=== PATIENT | female | born 2000 | race Caucasian/White ===

== ENCOUNTER 2019-05-11 09:11 | Emergency (ER) | payer BC ==
[~2019-05-11] VITALS: Ht 165.1 cm; Wt 61.4 kg
[2019-05-11 09:56] VITALS: Ht 165.1 cm; Wt 61.4 kg
[2019-05-11 10:43] LABS: BASOPHILS 0.2 % (0-2); EOSINOPHILS 0.6 % (0-7); HEMATOCRIT 39.3 % (36.0-48.0); HEMOGLOBIN 14.4 g/dL (12-16); IMMATURE GRANULOCYTES 0.3 % (0-5); LYMPHOCYTES 13.8 % (15-50); MCH 31.7 pg (26.0-34.0); MCHC 36.6 g/dL (31.0-37.0); MCV 86.6 fL (80.0-100.0); MEAN PLATELET VOLUME 10.3 fL (7.4-10.4); MONOCYTES 11.6 % (2-11); NEUTROPHILS 73.5 % (40-80); PLATELET COUNT 156 10x3/uL (130-400); RBC 4.54 10x6/uL (4.00-5.40); RDW 12.6 % (11.5-14.5); WBC 11.5 10x3/uL (4.8-10.8)
[2019-05-11 10:56] LABS: ALBUMIN 4.1 g/dL (3.4-5.0); ANION GAP 13.8 mmol/L (8-16); BILIRUBIN - TOTAL 0.81 mg/dL (0.2-1.3); CALCIUM 8.9 mg/dL (8.5-10.1); CARBON DIOXIDE 26.4 mmol/L (21.0-32.0); CREATININE - SERUM 1.2 mg/dL (0.6-1.3); MAGNESIUM - SERUM 2.2 mg/dL (1.8-2.4); POTASSIUM - SERUM 3.2 mmol/L (3.5-5.1); PROTEIN - SERUM 7.4 g/dL (6.4-8.2)
[2019-05-11 11:06] LABS: UDS - AMPHET POSITIVE QUAL (NEGATIVE); UDS - BARB NEGATIVE QUAL (NEGATIVE); UDS - BENZO POSITIVE QUAL (NEGATIVE); UDS - COCAINE POSITIVE QUAL (NEGATIVE); UDS - OPIATE NEGATIVE QUAL (NEGATIVE); UDS - PCP NEGATIVE QUAL (NEGATIVE); UDS - THC POSITIVE QUAL (NEGATIVE)
[2019-05-11 11:35] LABS: APPEARANCE SL CLDY (CLEAR); BILIRUBIN NEGATIVE (NEGATIVE); COLOR DK YELLOW (YELLOW); GLUCOSE NEGATIVE (NEGATIVE); KETONE MODERATE mg/dL (NEGATIVE); NITRITE NEGATIVE (NEGATIVE); PROTEIN 2+ mg/dL (NEGATIVE); SPECIFIC GRAVITY 1.025 (1.005-1.020)
[2019-05-11 11:37] LABS: WHITE CELLS - URINE OCC /hpf (0-5)
[2019-05-11 11:38] LABS: AMORPHOUS SEDIMENT >1+ /lpf (NONE SEEN); BACTERIA FEW /hpf (NONE SEEN); EPITHELIAL CELLS 0-5 /hpf (0-5); MUCUS <1+ /lpf (NONE SEEN); RED CELLS - URINE OCC /hpf (0-5)
[2019-05-11 11:39] LABS: HYALINE CAST RARE /lpf (NONE SEEN)
[2019-05-11 12:58] VITALS: BP 87/48
--- NOTE | 2019-05-11 13:57 | NUR ---
ALEXX BROUGHT TO EMERGENCY DEPT BY EMERGENCY PERSONNEL EARLIER TODAY. PATIENT WAS REPORTEDLY LETHARGIC AND UNABLE TO ANSWER QUESTIONS AT TIME OF ADMISSION DUE TO SEDATIVES GIVEN PER EMERGENCY PERSONNEL WHILE ENROUTE TO THE HOSPITAL. AT THIS TIME, PATIENT IS RESTING QUIETLY IN BED, EYES CLOSED BUT AROUSES EASILY TO VERBAL STIMULI. THIS NURSE UNABLE TO COMPLETE SUICIDE ASSESSMENT AT THIS TIME DUE TO PATIENT'S REFUSAL TO PARTICIPATE IN THE ASSESSMENT. PATIENT DENIES ANY SUICIDAL THOUGHTS OR ATTEMPTS AT THE PRESENT TIME OR ANY TIME IN HER LIFE. HOWEVER, LAW ENFORCEMENT STATED THAT PATIENT WAS OUTSIDE THE HOUSE IN THE [place] ATTEMPTING TO CUT SELF. FAMILY REPORTS THAT PATIENT LOCKED HERSELF IN THE BATHROOM AND WAS ATTEMPTING TO DROWN SELF IN BATHTUB WHEN FAMILY HAD TO BREAK DOWN THE DOOR TO RESCUE HER. FAMILY ALSO STATED THAT PATIENT VERBALIZED A DESIRE TO SHOOT SELF AND STATED THAT SHE DID HAVE ACCESS TO A FIREARM. PATIENT'S URINE DRUG SCREENS WERE POSITIVE FOR THC, COCAINE, AMPHETAMINES, AND BENZODIAZEPINES. PATIENT ADAMENTLY DENIES ANY THOUGHTS, ATTEMPTS, OR DESIRES TO HARM SELF. PATIENT STATES, "I JUST WANT TO GO HOME TO BE WITH MY BOYFRIEND!" PATIENT REFUSES TO ANSWER ANY QUESTIONS AND SIMPLY STATED HER DESIRE TO GO HOME WITH BOYFRIEND. IT IS THE OPINION OF DR. VIVAR AND THIS NURSE THAT PATIENT IS CLEARLY A RISK FOR SELF-HARM. IT IS FOR THIS REASON THAT DR VIVAR HAS ORDERED A [id number] SITTER TO BE IN PLACE UNTIL PATIENT CAN BE PLACED IN AN INPATIENT FACILITY FOR TREATMENT. SITTER IN PLACE AT BEDSIDE. NOTIFIED CHARGE NURSE AND ATTENDING PHYSICIAN IN REGARDS TO FINDINGS. RESOURCES GIVEN TO PATIENT AND SAFETY PLAN INITIATED.
== END 2019-05-11 21:00 ==
LOC: D.ER 09:11
PROVIDERS: Family Medicine
DX: R45.851 Suicidal ideations (principal); F19.10 Other psychoactive substance abuse, uncomplicated

== ENCOUNTER 2019-05-20 18:45 | Emergency (ER) | payer BC ==
[~2019-05-20] VITALS: Ht 165.1 cm; Wt 59.1 kg
[2019-05-20 18:50] VITALS: Ht 165.1 cm; Wt 59.1 kg
[2019-05-20 20:30] LABS: BASOPHILS 0.2 % (0-2); EOSINOPHILS 0.2 % (0-7); HEMATOCRIT 38.9 % (36.0-48.0); HEMOGLOBIN 14.2 g/dL (12-16); IMMATURE GRANULOCYTES 0.2 % (0-5); LYMPHOCYTES 10.2 % (15-50); MCH 31.8 pg (26.0-34.0); MCHC 36.5 g/dL (31.0-37.0); MEAN PLATELET VOLUME 10.1 fL (7.4-10.4); MONOCYTES 10.1 % (2-11); NEUTROPHILS 79.1 % (40-80); RBC 4.47 10x6/uL (4.00-5.40); RDW 12.8 % (11.5-14.5); WBC 12.9 10x3/uL (4.8-10.8)
[2019-05-20 20:33] LABS: APPEARANCE CLEAR (CLEAR); BILIRUBIN NEGATIVE (NEGATIVE); COLOR YELLOW (YELLOW); GLUCOSE NEGATIVE (NEGATIVE); KETONE NEGATIVE (NEGATIVE); NITRITE NEGATIVE (NEGATIVE); PROTEIN TRACE mg/dL (NEGATIVE); SPECIFIC GRAVITY 1.015 (1.005-1.020); UROBILINOGEN NORMAL (NORMAL)
[2019-05-20 20:34] LABS: PLATELET COUNT 203 10x3/uL (130-400)
[2019-05-20 20:42] LABS: ALBUMIN 4.4 g/dL (3.4-5.0); ANION GAP 17.1 mmol/L (8-16); BILIRUBIN - TOTAL 1.16 mg/dL (0.2-1.3); CALCIUM 9.6 mg/dL (8.5-10.1); CARBON DIOXIDE 24.4 mmol/L (21.0-32.0); CREATININE - SERUM 1.3 mg/dL (0.6-1.3); POTASSIUM - SERUM 3.5 mmol/L (3.5-5.1); PROTEIN - SERUM 7.9 g/dL (6.4-8.2)
[2019-05-20 20:54] LABS: UDS - AMPHET POSITIVE QUAL (NEGATIVE); UDS - BARB NEGATIVE QUAL (NEGATIVE); UDS - BENZO NEGATIVE QUAL (NEGATIVE); UDS - COCAINE NEGATIVE QUAL (NEGATIVE); UDS - OPIATE NEGATIVE QUAL (NEGATIVE); UDS - PCP NEGATIVE QUAL (NEGATIVE); UDS - THC POSITIVE QUAL (NEGATIVE)
[2019-05-21 11:25] VITALS: BP 134/88
== END 2019-05-21 11:26 | disposition home or self-care (01) ==
LOC: D.ER 18:45
PROVIDERS: Family Medicine
DX: F41.9 Anxiety disorder, unspecified (principal)

== ENCOUNTER 2020-05-19 12:56 | Emergency (ER) | payer BC ==
[~2020-05-19] VITALS: Ht 165.1 cm; Wt 68.2 kg
[2020-05-19 13:05] VITALS: BP 125/59; Ht 165.1 cm; Wt 68.2 kg
[2020-05-19] MEDS ORDERED: HYDROCODON-ACE1 EAC7 PO (13:54)
== END 2020-05-19 14:35 | disposition home or self-care (01) ==
LOC: D.ER 12:56
DX: S52.512A Displaced fracture of left radial styloid process, initial encounter for closed fracture (principal); V89.2XXA Person injured in unspecified motor-vehicle accident, traffic, initial encounter; Y93.9 Activity, unspecified; Y92.9 Unspecified place or not applicable

== ENCOUNTER → 2020-07-02 08:38 | Outpatient (CLI) | payer BC ==
[2020-05-19 13:05] VITALS: BMI 25.0
[~2020-07-02 08:38] MED LIST: HYDROCODON-ACE1 EAC7 PO
== END | disposition home or self-care (01) ==
LOC: D.MRI 08:38
PROVIDERS: ATTEND Clinical Nurse Specialist Family Health
DX: S62.002G Unspecified fracture of navicular [scaphoid] bone of left wrist, subsequent encounter for fracture with delayed healing (principal)